=== PATIENT | female | born 1965 | race Asian ===

== ENCOUNTER 2017-10-11 11:37 | Outpatient (CLI) | payer BC ==
--- NOTE | 2017-10-11 16:34 | Mammography Report ---
BILATERAL DIGITAL SCREENING MAMMOGRAM with CAD : 10/11/17 11:37:00 CLINICAL: Routine screening. COMPARISON:02/25/10 left mammogram. FINDINGS: The breasts are heterogeneously dense, which may obscure small masses.Left upper outer biopsy clip. No mass, architectural distortion or suspicious calcifications. IMPRESSION: No mammographic evidence of malignancy. BI-RADS CATEGORY: 2 -- Benign RECOMMENDATION: Routine mammographic screening in one year. COMMENT: Patient follow-up letters are generated by our [employer] application.
== END 2017-10-11 11:38 | disposition home or self-care (01) ==
LOC: SPVWC 11:37
DX: Z12.31 Encounter for screening mammogram for malignant neoplasm of breast (principal)
CPT/HCPCS: 77067; G0202